=== PATIENT | female | born 1960 | race Native Hawaiian/Other Pacific Islander ===

== ENCOUNTER 2017-09-29 11:40 | Day surgery (SDC) | payer OTHER, MEDICAID ==
[2017-09-29] MEDS ORDERED: LR 1,000 ML IV ONE (12:28)
[2017-09-29] MEDS ORDERED: LIDOCAINE 1% 2 ML INJ ID PRN (12:28)
[2017-09-29 12:46] VITALS: PULSE 90
[2017-09-29] MEDS ORDERED: INDOMETHACIN 50 MG SUPP PR PRN (14:07)
--- NOTE | 2017-09-29 14:07 | PDGENHP ---
History & Physical Chief Complaint: abnl imaging History of Present Illness: 57 year old female with metastatic b.c. presents for evaluation of a pancreatic mass. Pertinent Past, Social, Family History: PMHx: breast cancer Relevant Physical Exam: HEENT: anicteric. CV: RRR +s1s2. Lungs: CTAB. Abd: soft, nt, + bs. Cardiorespiratory Assessment: ASA 3
[2017-09-29] MEDS ORDERED: NS 500 ML IV SCH (14:15)
[2017-09-29] MEDS ORDERED: fentaNYL 100 MCG/2 ML INJ ONE (14:20)
[2017-09-29] MEDS ORDERED: PROPOFOL 200 MG/20 ML VIAL ONE ×2 (14:21→14:31)
[2017-09-29] MEDS ORDERED: LIDOCAINE 2% 5 ML SDV ONE (14:22)
[2017-09-29] MEDS ORDERED: DEXAMETHASONE 4 MG/ML VIAL ONE (14:29)
[2017-09-29] MEDS ORDERED: ONDANSETRON 4 MG/2 ML VIAL ONE (14:29)
--- NOTE | 2017-09-29 15:33 | PDANEPAE ---
ANE Past Medical History - Cardiovascular History Hx Hypertension: No Hx Arrhythmias: No Hx Chest Pain: No Hx Coronary Artery / Peripheral Vascular Disease: No Hx CHF / Valvular Disease: No Hx Palpitations: No - Pulmonary History Hx COPD: No Hx Asthma/Reactive Airway Disease: No Hx Recent Upper Respiratory Infection: No Hx Oxygen in Use at Home: No Hx Sleep Apnea: No Sleep Apnea Screening Result - Last Documented: Negative Pulmonary History Comment: URI TREATED WITH ANTIBIOTIC. NO SLEEP STUDY DONE DOES MEASURMENTS OF OXYGEN. INTERMITTENT USE OF OXYGEN RELATED TO USE OF STEROIDS - Neurologic History Hx Cerebrovascular Accident: No Hx Seizures: No Hx Dementia: No - Endocrine History Hx Diabetes: No Hypothyroid: No Hyperthyroid: No Obesity: no - Renal History Hx Renal Disorders: No - Liver History Hx Hepatic Disorders: Yes Hepatic History Comment: CYST ON PANCREAS AND SOMETHING ON LIVER - Neurological & Psychiatric Hx Hx Neurological and Psychiatric Disorders: No - Cancer History Hx Cancer: Yes Cancer History Comment: BREAST WITH METS TO BONE - Congenital Disorder History Hx Congenital Disorders: No - GI History Hx Gastrointestinal Disorders: Yes Gastrointestinal History Comment: REFLUX - Other Health History Other Health History: ON LIFETIME ANTIBIOTIC TX. POST SPINE SURG AND MARIA T PLACEMENT - Chronic Pain History Chronic Pain: Yes (ENTIRE CERVICAL/LUMBAR AREA) - Surgical History Prior Surgeries: MARIA T PLACEMENT T-2 AFTER REMVL OF [place]TEBRAE 01/2015. PORT PLACEMENT. RT BREAST BX ANE Review of Systems Review of Systems: - Exercise capacity METS (RN): 2 METS ANE Patient History - Allergies Allergies/Adverse Reactions: No Known Allergies Allergy (Unverified 09/26/17 12:00) - Home Medications Home Medications: Percocet 7.5-325 mg Tablet PRN 09/26/17 [Last Taken 09/29/17 07:00] oxyCODONE CR BID 09/26/17 [Last Taken 1 Day Ago ~09/28/17] Calcium 09/29/17 [Last Taken 1 Day Ago ~09/28/17] Cyclobenzaprine [Flexeril 10 MG (*)] 10 mg PO 09/29/17 [Last Taken 09/29/17] Doxycycline Monohydrate 09/29/17 [Last Taken 09/29/17] Herceptin 09/29/17 [Last Taken 3 Weeks Ago ~09/08/17] Lidoderm 09/29/17 [Last Taken 3 Weeks Ago ~09/08/17] Linaclotide [Linzess] 09/29/17 [Last Taken 2 Days Ago ~09/27/17] Mirtazapine 15 mg PO 09/29/17 [Last Taken 1 Day Ago ~09/28/17] Multivitamins [Multivitamin (*)] 09/29/17 [Last Taken 1 Day Ago ~09/28/17] Pantoprazole Sodium [Protonix 40mg (*)] 40 mg PO DAILY 09/29/17 [Last Taken 1 Day Ago ~09/28/17] Perjeta 09/29/17 [Last Taken 2 Weeks Ago ~09/15/17] Spironolactone 09/29/17 [Last Taken 1 Day Ago ~09/28/17] Vitamin D3 09/29/17 [Last Taken 1 Day Ago ~09/28/17] Voltaren 0.1% (*) 09/29/17 [Last Taken 2 Days Ago ~09/27/17] Zofran 09/29/17 [Last Taken 1 Day Ago ~09/28/17] amLODIPine BESYLATE [Amlodipine Besylate] 09/29/17 [Last Taken 1 Day Ago ~09/28] - NPO status NPO Since - Liquids (Date): 09/29/17 NPO Since - Liquids (Time): 10:30 NPO Since - Solids (Date): 09/28/17 NPO Since - Solids (Time): 19:00 - Smoking Hx Smoking Status: Former smoker - Family Anes Hx Family Hx Anesthesia Complications: NEG ANE Labs/Vital Signs - Vital Signs Blood Pressure: 109/78 Heart Rate: 90 Respiratory Rate: 18 O2 Sat (%): 95 Height: 162.56 cm Weight: 64.864 kg ANE Physical Exam - Airway Neck exam: FROM Mallampati Score: Class 1 Mouth exam: normal dental/mouth exam - Pulmonary Pulmonary: no respiratory distress - Cardiovascular Cardiovascular: regular rate and rhythym - ASA Status ASA Status: II ANE Anesthesia Plan Anesthesia Plan: general endotracheal anesthesia Urgent/Emergent Case: Skylaraaron santanaden completed preop but documented later for safe timely pt care
[2017-09-29] MEDS ORDERED: fentaNYL 100 MCG/2 ML INJ IVP PRN (15:34)
[2017-09-29] MEDS ORDERED: NALOXONE HCL 0.4 MG/ML INJ IVP PRN (15:34)
[2017-09-29] MEDS ORDERED: PROMETHAZINE HCL 25 MG/ML INJ IVP PRN (15:34)
[2017-09-29] MEDS ORDERED: LR 500 ML IV PRN (15:34)
--- NOTE | 2017-09-29 15:34 | POSTANESTH ---
Post Anesthetic Evaluation Cardiovascular Status: Normal, Stable Respiratory Status: Normal, Stable Level of Consciousness/Mental Status: Can Participate in Eval Pain Control: Adequate, Prn Tx Ordered Nausea/Vomiting Control: Adequate, Prn Tx Ordered Complications Possibly Related to Anesthesia: None Noted
[2017-09-29] MEDS ORDERED: ROCURONIUM 50 MG/5 ML VIAL ONE (15:36)
[2017-09-29] MEDS ORDERED: SUGAMMADEX SODIUM 200 MG/2 ML VIAL IVP ONE (15:36)
[2017-09-29 15:40] VITALS: TEMP 98.2
[2017-09-29 16:14] VITALS: BP 101/68; O2SAT 94
[2017-09-29 16:30] VITALS: RESP 16
--- NOTE | 2017-09-29 22:18 | GPN ---
[f rep st] PROCEDURE NOTE DATE OF PROCEDURE: 09/29/2017 PROCEDURE: Esophagogastroduodenoscopy with biopsy, endoscopic ultrasound, and fine-needle aspiration . INDICATION: The patient is a 57-year-old female who presents for evaluation of abnormal imaging. Th e patient, who has a history of metastatic breast cancer, presents for evaluation of a recent PET sca n performed on 09/23/2017, which showed a possible mass in the pancreatic neck. Presents for further evaluation and possible tissue acquisition. CONSENT: Risks, benefits, and alternatives of the procedure were discussed in great detail with the patient. Risk of infection, bleeding, perforation, sedation, pancreatitis were discussed. All quest ions answered. Informed consent obtained. MEDICATIONS: General anesthesia. Please see anesthesia record for details. ESTIMATED BLOOD LOSS: Insignificant. ESOPHAGOGASTRODUODENOSCOPY EXAMINATION: Olympus upper endoscope was inserted in the mouth and advanc ed to esophagus. The proximal, mid, and distal esophagus were normal in appearance. The stomach was entered and closely examined, including retroflexed views of angulus, cardia, and fun dus. A moderate-size hiatal hernia was noted. The mucosa in the antrum and body of stomach was erythematous in a patchy distribution, and biopsies were taken. On the posterior wall in the mid body, a 2 cm ulcer was seen. It was clean based. Biopsies were kasie en. The duodenal bulb and second portion of the duodenum were normal in appearance. ENDOSCOPIC ULTRASOUND EXAMINATION: The Olympus linear echoendoscope was introduced in the mouth and advanced to the second portion of the duodenum. The esophagus, stomach, and duodenum were visualized endosonographically. The pancreas was carefully examined from the uncinate process to the tail where the spleen was seen. In the pancreatic body, a 3 x 2 cm hypoechoic mass was seen. It had regular margins. Doppler was u sed to rule out intervening vessels. Two passes were made with [employer] 25-gauge into the l esion. Cytology was present and was adequate. To distinguish whether this was metastatic breast can cer versus primary pancreatic cancer, it was suspected that additional , and 2 core biopsie s were made for a 22-gauge [employer] core biopsy. The pancreatic duct was noted to be dilated upstream to 3 mm. Multiple lymph nodes were seen through out the retroperitoneum and celiac axis, which ranged from 5 mm to 1.2 mm. They were hypoechoic with well-defined margin, suggestive of involvement. The common bile duct was seen and was without stone, stricture, or stenosis. The gallbladder was wit hout filling defect. No obvious liver lesions were noted. IMPRESSION: 1. Pancreatic mass, body, status post fine-needle aspiration. Await biopsy results. 2. Gastritis, status post biopsy. 3. Gastric ulcer. RECOMMENDATIONS: 1. Follow up on biopsies. 2. PPI therapy. /[id number]/MODL
== END 2017-09-29 16:50 | disposition home or self-care (01) ==
LOC: FSGY 11:40
PROVIDERS: ATTEND Internal Medicine Gastroenterology
DX: C78.89 Secondary malignant neoplasm of other digestive organs (principal); Z85.3 Personal history of malignant neoplasm of breast; K28.9 Gastrojejunal ulcer, unspecified as acute or chronic, without hemorrhage or perforation; K29.70 Gastritis, unspecified, without bleeding; K44.9 Diaphragmatic hernia without obstruction or gangrene
CPT/HCPCS: J1100; J2405; J2704; J3010